=== PATIENT | male | born 1960 | race Caucasian/White ===

== ENCOUNTER 2025-07-03 09:22 | Emergency (ER) | payer MEDICAID, SELFPAY ==
[2025-07-03 09:41] VITALS: BP 148/86; PULSE 95; RESP 18; TEMP 36.5; O2SAT 97; BMI 25.7
[2025-07-03 09:42] VITALS: BMI 26.4
--- NOTE | 2025-07-03 09:42 | EDNOTE_ITS ---
ED Medical Clearance RME/HPI General Chief complaint: Medical Clearance Stated complaint: alf check Time Seen by Provider: 07/03/25 09:23 Arrival date/time: 07/03/25 09:22 RME / HPI RME / HPI Narrative: 65 year old male presents to the ED brought in by [facility] for medical clearance for incarceration today. Per officer, while in alf, patient reported he was unable to stand or walk on his own. Additionally report there are wounds to bilateral lower extremities that need further evaluation/treatment. In the ED, patient reports in he was diagnosed with ALS?. At baseline, patient reports using crutches or wheelchair to get around due to bilateral lower extremity weakness. Patient additionally complains of pain to his hips and lower back. Patient mentioned he had been previously admitted here for bilateral lower extremity cellulitis that improved with antibiotics 1 year ago. Denies fevers, chills, sweats, n/v, or other associated symptoms. Related Information Previous Rx's ?Medication ?Instructions ?Recorded amoxicillin 875 mg-potassium 1 tab PO BID #14 tabs clavulanate 125 mg tablet ascorbic acid (vitamin C) 250 mg 500 mg (2 x 250 mg) P O BID #30 tabs 04/26/24 tablet (Vitamin C) doxycycline hyclate 100 mg tablet 100 mg PO BID #14 ta bs 04/26/24 multivitamin with folic acid 400 1 tab PO QDAY #30 tab s 04/26/24 mcg tablet (Tab-A-Doc) nicotine 14 mg/24 hr daily 14 mg top QDAY #30 ea 04/26 transdermal patch zinc sulfate 50 mg zinc (220 mg) 220 mg (4.4 x 50 mg z inc (220 mg)) 04/26/24 capsule PO QDAY #30 caps Allergies Allergy/AdvReac Type Severity Reaction Status Date / Time No Known Allergies Allergy Verified 07/03/25 09:46 Review of Systems Review of Systems Systems Reviewed: All systems reviewed, normal except as documented Past Medical History Past Medical History NEUROLOGIC: Positive Neurological Disorders and Amyotrophic Lateral Sclerosis (ALS/Steff Gehrig's) CARDIAC: Positive Cardiac Disorders and Hypertension PSYCHO/SOCIAL: Positive Recreational Drug Use Family History FAMILY HISTORY: Negative Family Cardiac Disorders Surgical History SURGICAL: Negative Abdominal Surgery or Nephrectomy Social History SMOKING STATUS: Current some day smoker ED Exam Narrative Physical exam: GENERAL APPEARANCE: alert and oriented x 4, well-developed, well-nourished, no acute distress HEENT: Normocephalic, atraumatic; pupils equal, round, reactive to light; EOMI; mucous membranes pink, moist; oropharynx clear NECK: Supple LUNGS: CTABL; no wheezes, no rales, no rhonchi HEART: Regular rate, regular rhythm; normal S1, S2; no murmurs ABDOMEN: non distended; normal BS; soft, no tenderness, no guarding, no rebound; no masses, no organomegaly, no hernia BACK: no CVA tenderness EXTREMITIES: left leg weakness, chronic wound x 2 on the left lower extremities, cap refill <2 seconds, feet are warm and pink, cross over of the right second toe NEUROLOGIC: awake; alert and oriented x4; cranial nerves II-XII grossly intact; no focal sensory or motor deficits PSYCHIATRIC: appropriate mood and affect SKIN: warm, dry, normal color; no rashes Course Course Course Narrative: Patient remains clinically stable throughout the emergency department visit. We reviewed all the results, analysis, and treatment plans. Patient is amenable to discharge. Strict return precautions were outlined. Quality Measures none Orders Category Date Time Status CBC Stat Lab 07/03/25 10:15 Completed CMP [Comprehensive Metabolic Panel] Stat Lab 07/03/25 10:15 Completed ESR [Sed Rate (ESR)] Stat Lab 07/03/25 10:15 Completed Vital Signs Vital signs: Vital Signs Temperature 97.7 F 07/03/25 09:41 Pulse Rate 95 07/03/25 09:41 Respiratory Rate 18 07/03/25 09:41 Blood Pressure 148/86 H 07/03/25 09:41 Pulse Oximetry (%) 97 07/03/25 09:41 Oxygen Delivery Method Room Air 07/03/25 09:41 Pulse ox is 97% on room air which is adequate. Medical Clearance MDM Narrative MDM Narrative:: Tisha Lind am scribing for and in the presence of Dr. De La Cruz. Patient data External records reviewed:: [facility] previous records (I reviewed admission from 04/23/2024 through 04/27/2024 for bilateral lower extremity cellulitis ) Clinical information provided by:: patient and law enforcement Social determinants that could affect healthcare access:: housing (Patient is homeless ) Patient has the following chronic illnesses:: hypertension, chronic cellulitis/venous stasis, osteoarthritis, PAD, ALS? How is presenting disease/condition affected by chronic disease/condition?: exacerbated by Evaluation data The following diagnostics were reviewed and interpreted by me:: lab results Lab and/or radiology exams considered but not ordered:: None Interpretation Summary: CBC and CMP are unremarkable, no acute infection Medications / Prescriptions Medications or Prescriptions considered but not ordered:: None Medication administrations:: None Consultations Consultation(s) initiated? (list below): No Diagnosis Medical Clearance Differential Diagnosis: other (Cellulitis, PAD, ) Most likely diagnosis given after review of the tests above:: Chronic wound of extremity Left leg weakness Admission Indicated Admission indicated?: not indicated Admission Request Was there a request for admission?: No Disposition Plan Disposition Plan: Discharge Discharge Attestation Discharge Attestation: The patient and all family members were given an opportunity to ask questions and understood the discharge instructions. Discharge instructions specifically effects, indications for sooner follow up or return to the emergency department, and the expected course of current diagnosis. Patient condition: Stable Discharge Plan Plan Patient Disposition: Care Home/Court/Law Discharge Disposition comment: Okay to book Prescriptions/Referrals Prescriptions/Med Rec: No Action nicotine 14 mg/24 hr Patch 24 Hour 14 mg top QDAY Qty: 30 0RF ascorbic acid (vitamin C) [Vitamin C] 250 mg Tablet 500 mg PO BID Qty: 30 0RF doxycycline hyclate 100 mg Tablet 100 mg PO BID Qty: 14 0RF amoxicillin-pot clavulanate 875-125 mg Tablet 1 tab PO BID Qty: 14 0RF zinc sulfate 50 mg zinc (220 mg) Capsule 220 mg PO QDAY Qty: 30 0RF multivitamin with folic acid [Tab-A-Doc] 400 mcg Tablet 1 tab PO QDAY Qty: 30 0RF Referrals: No Primary/Family,Physician [Primary Care Provider] - In 1 week Problem List Clinical Impression: Chronic wound of extremity, Left leg weakness Patient/Caregiver Discharge Instructions Additional Instructions: Continue current wound care regimen Print Language: Korean
[2025-07-03 10:25] LABS: Basophils # (Auto) 0.0 Thou/mm3 (0.0-0.2); Basophils % (Auto) 1 % (0-2.5); Eosinophils # (Auto) 0.2 Thou/mm3 (0.0-0.5); Eosinophils % (Auto) 2 % (0-10); Hematocrit 41.5 % (41.0-53.0); Hemoglobin 13.6 g/dL (13.5-16.0); Immature Granulocytes Auto 0.02 Thou/mm3 (0.00-0.00); Lymphocytes # (Auto) 0.8 Thou/mm3 (1.0-4.8); Lymphocytes % (Auto) 13 % (10-50); Mean Corpuscular HGB Conc 32.8 g/dl (31.0-37.0); Mean Corpuscular Hemoglobin 28.7 pg (25.0-35.0); Mean Corpuscular Volume 88 fL (80-100); Monocytes # (Auto) 0.6 Thou/mm3 (0.0-0.8); Monocytes % (Auto) 10 % (0-12); Neutrophils # (Auto) 4.7 Thou/mm3 (1.8-7.7); Neutrophils % (Auto) 74 % (37-80); Nucleated Red Blood Cell # 0.00 Thou/mm3 (0.00-0.00); Nucleated Red Blood Cell % 0 /100 WBC (0); Platelet Count 269 Thou/mm3 (140-440); RDW Standard Deviation 46.5 fL (35.1-43.9); Red Blood Count 4.74 Miln/mm3 (4.50-5.90); White Blood Count 6.4 Thou/mm3 (3.8-10.6)
[2025-07-03 10:32] VITALS: PULSE 83; RESP 20; TEMP 36.3; O2SAT 97
[2025-07-03 10:35] VITALS: BP 163/103; PULSE 81; RESP 20; TEMP 36.3; O2SAT 97
[2025-07-03 10:43] LABS: Alanine Aminotransferase 13 U/L (10-49); Albumin, Serum 4.5 gm/dL (3.4-4.8); Albumin/Globulin Ratio 1.5 (1.2-2.2); Alkaline Phosphatase 131 U/L (46-116); Anion Gap 8 (7-16); Aspartate Amino Transferase 18 U/L (0-34); BUN/Creatinine Ratio 23 Ratio (12-20); Bilirubin,Total 0.3 mg/dL (0.3-1.2); Blood Urea Nitrogen 16 mg/dL (9-23); Calcium 10.1 mg/dL (8.3-10.6); Calcium (Corrected) 10.1 mg/dL (8.5-10.1); Carbon Dioxide 27.3 mMol/L (20.0-31.0); Chloride 107 mMol/L (98-107); Creatinine (Component) 0.7 mg/dL (0.6-1.3); Estimated Creatinine Clearance 118.6 mL/min (>60); Globulin 3.0 gm/dL (2.3-3.5); Glucose 116 mg/dL (74-106); Osmolality,Calculated 285 (275-295); Potassium 4.0 mMol/L (3.4-5.1); Sodium 142 mMol/L (136-145); Total Protein 7.5 gm/dL (5.7-8.2); eGFR > 60 See Note
[2025-07-03 10:53] LABS: Sed Rate (ESR) 43 mm/hr (0-20)
[2025-07-03 11:00] VITALS: BP 163/105; PULSE 89; RESP 19; O2SAT 98
[2025-07-03 11:30] VITALS: BP 136/104
== END 2025-07-03 11:33 ==
PROVIDERS: Emergency Provider Emergency Medicine
DX: Z02.89 Encounter for other administrative examinations (principal); R53.1 Weakness; L98.499 Non-pressure chronic ulcer of skin of other sites with unspecified severity; Z59.00 Homelessness unspecified
CPT/HCPCS: 36415; 80053; 85025; 85652; 99283

== ENCOUNTER 2025-09-11 22:46 | Emergency (ER) | payer MEDICAID, SELFPAY ==
[2025-09-11 22:52] VITALS: BMI 25.7
[2025-09-11 22:53] VITALS: BP 133/87; PULSE 98; RESP 19; TEMP 36.9; O2SAT 96
--- NOTE | 2025-09-11 23:33 | PD.EDSKIN ---
ED Skin Abcess FB-RME/HPI General Chief complaint: Extremity Injury, Lower Stated complaint: LEG PAIN AND ULCERS Time Seen by Provider: 09/11/25 23:21 Arrival date/time: 09/11/25 22:46 RME / HPI RME / HPI narrative: DR. CABRAL MAIN ED EVALUATION: 65 y/o male with Hx of ALS, HTN, and Recreational Drug use BIB [facility]PD for medical clearance presents to ED c/o worsening BLE pain x 1 month. Symptoms usually managed with Bacitracin and ambulates with crutches. Patient was released from [facility] approximately 2 weeks ago. Related Data Previous Rx's ?Medication ?Instructions ?Recorded amoxicillin 875 mg-potassium 1 tab PO BID #14 tabs 04/26/24 clavulanate 125 mg tablet ascorbic acid (vitamin C) 250 mg 500 mg (2 x 250 mg) PO BID #30 tabs 04/26/24 tablet (Vitamin C) doxycycline hyclate 100 mg tablet 100 mg PO BID #14 tabs 04/26/24 multivitamin with folic acid 400 1 tab PO QDAY #30 tabs 04/26/24 mcg tablet (Tab-A-Doc) nicotine 14 mg/24 hr daily 14 mg top QDAY #30 ea 04/26/24 transdermal patch zinc sulfate 50 mg zinc (220 mg) 220 mg (4.4 x 50 mg zinc (220 mg)) 04/26/24 capsule PO QDAY #30 caps cephalexin 500 mg capsule 500 mg PO TID 10 days #30 caps 09/12/25 sulfamethoxazole 800 1 tab PO BID #20 tabs 09/12/25 mg-trimethoprim 160 mg tablet (Bactrim DS) Allergies Allergy/AdvReac Type Severity Reaction Status Date / Time No Known Allergies Allergy Verified 07/03/25 09:46 Review of Systems Review of Systems Systems Reviewed: All systems reviewed, normal except as documented Past Medical History Past Medical History NEUROLOGIC: Positive Neurological Disorders and Amyotrophic Lateral Sclerosis (ALS/Steff Gehrig's) CARDIAC: Positive Cardiac Disorders and Hypertension PSYCHO/SOCIAL: Positive Recreational Drug Use Social History SMOKING STATUS: Current some day smoker ED Exam Narrative Physical exam: Generally patient is alert somewhat cachectic with poor hygiene, heart is regular rate and rhythm, lungs clear to auscultation, abdomen soft bowel sounds present nondistended nontender, extremities show shallow-based ulcerations to bilateral lower extremities with the 1 on the right to the inner aspect of the distal tibia and the 1 on the left to the mid franco region. Both show mild thin discharge but no fluctuance. There is mild surrounding erythema. Patient denies vomiting or fevers. Patient received Ancef 1 g IV and pharmacy dose vancomycin IV. There is no leukocytosis or fever. X-rays of bilateral tibia and fibula's showed no bony destruction. The patient does not want to be admitted and wishes to go home. I believe it is safe for the patient to be discharged home. He was brought in by law enforcement however the patient is not under arrest. He is to take the cephalexin and Bactrim as prescribed. I interpreted all labs. Course Quality Measures none Orders Category Date Time Status XR tibia fibula BI 2V Stat Exams 09/11/25 23:45 Taken BMP [Basic Metabolic Panel] Stat Lab 09/11/25 23:53 Completed CBC Stat Lab 09/11/25 23:53 Completed Vancomycin Inj 1,000 mg Med 09/11/25 23:45 Active Sodium Chloride 0.9% 250 ml [Ns] 250 ml IV X1 Vancomycin Pharmacy to Dose Med 09/12/25 09:00 Pending 1 each IV QDAY ceFAZolin/D5W 1 GM IVPB [Ancef Ivpb] Med 09/11/25 23:46 Discontinued 1 gm in 50 ml IV X1 Vital Signs Vital signs: Vital Signs Temperature 98.5 F 09/11/25 22:53 Pulse Rate 98 09/11/25 22:53 Respiratory Rate 19 09/11/25 22:53 Blood Pressure 133/87 H 09/11/25 22:53 Pulse Oximetry (%) 96 09/11/25 22:53 Oxygen Delivery Method Room Air 09/11/25 22:53 Skin / Abscess / Foreign Body MDM Narrative MDM Narrative:: Scribe Attestation: Lazara Lind, am scribing for and in the presence of Dr. Cabral. Provider Notation: Although this document has been carefully reviewed, there may still be some phonetic and other typographical errors. These errors are purely grammatical due to imperfections in the software program and should not be construed in any way to compromise the substance of the patient's medical care during this visit. Patient data External records reviewed:: [facility] previous records (Reviewed prior ED records from 07/03/25. Patient was seen for Chronic wound of extremity.) Clinical information provided by:: patient Social determinants that could affect healthcare access:: substance use Patient has the following chronic illnesses:: Amyotrophic Lateral Sclerosis, Hypertension, Recreational Drug Use How is presenting disease/condition affected by chronic disease/condition?: exacerbated by Evaluation data The following diagnostics were reviewed and interpreted by me:: lab results and radiology exam(s) Lab and/or radiology exams considered but not ordered:: None Interpretation Summary: RADIOLOGY BL Tib/Fib X-Ray: Pending official radiology report. Medications / Prescriptions Medications or Prescriptions considered but not ordered:: None Medication administrations:: Medication Administration History Vancomycin HCl 1,000 mg/ (Sodium Chloride) 250 mls @ 120 mls/hr IV X1 ONE Stop: 09/12/25 01:49 Last Admin: 09/12/25 01:04 Dose: 120 mls/hr Documented By: SHALA Pharmacy Consult (Vancomycin Pharmacy To Dose 1 Each Each) 1 each IV QDAY PAULINO Stop: 10/12/25 08:59 Discontinued Medications Cefazolin Sodium/Dextrose (Ancef Ivpb) 1 gm in 50 mls @ 100 mls/hr IV X1 ONE Stop: 09/12/25 00:15 Last Infusion: 09/12/25 00:53 Dose: Infused Documented By: Admin: 09/12/25 00:23 Dose: 100 mls/hr Documented By: SHALA See above if any Consultations Consultation(s) initiated? (list below): No Diagnosis Skin/Abscess Differential Diagnosis: abscess of skin or subcutaneous tissue, cellulitis and contact dermatitis Most likely diagnosis given after review of the tests above:: None Admission Indicated Admission indicated?: not indicated Admission Request Was there a request for admission?: No Disposition Plan Disposition Plan: Discharge Discharge Attestation Discharge Attestation: The patient and all family members were given an opportunity to ask questions and understood the discharge instructions. Discharge instructions specifically effects, indications for sooner follow up or return to the emergency department, and the expected course of current diagnosis. Patient condition: Stable Discharge Plan Plan Patient Disposition: HOME (Self Care) Prescriptions/Referrals Prescriptions/Med Rec: New cephalexin 500 mg capsule 500 mg PO TID 10 Days Qty: 30 0RF sulfamethoxazole-trimethoprim [Bactrim DS] 800-160 mg tablet 1 tab PO BID Qty: 20 0RF No Action nicotine 14 mg/24 hr Patch 24 Hour 14 mg top QDAY Qty: 30 0RF ascorbic acid (vitamin C) [Vitamin C] 250 mg Tablet 500 mg PO BID Qty: 30 0RF doxycycline hyclate 100 mg Tablet 100 mg PO BID Qty: 14 0RF amoxicillin-pot clavulanate 875-125 mg Tablet 1 tab PO BID Qty: 14 0RF zinc sulfate 50 mg zinc (220 mg) Capsule 220 mg PO QDAY Qty: 30 0RF multivitamin with folic acid [Tab-A-Doc] 400 mcg Tablet 1 tab PO QDAY Qty: 30 0RF Problem List Clinical Impression: Cellulitis Patient/Caregiver Discharge Instructions Education Materials: ED Cellulitis Additional Instructions: Take your antibiotics as prescribed. Follow-up with your doctor. Return as needed. Print Language: Welsh Stand Alone Forms: [facility] Award Info., Patient Portal Info Letter
[2025-09-11 23:34] VITALS: PULSE 90; RESP 19; O2SAT 97; BMI 23.1
--- NOTE | 2025-09-11 23:45 | XR_ITS ---
EXAMINATION: Bilateral tibia fibula is 4 views TECHNIQUE: AP lateral right and left tibia fibula is 4 views Date and time: September 11, 2025, 11:51 p.m. INDICATIONS: Redness swelling and pain involving the lower legs this week FINDINGS: Significant osteopenia. Bilateral advanced knee tricompartment osteoarthritis No fractures No cortical bone destruction No foreign bodies IMPRESSION: Negative for osteomyelitis No fractures identified
[2025-09-11 23:52] VITALS: BP 121/84; PULSE 88; RESP 25; TEMP 36.9; O2SAT 98
[2025-09-12 00:10] LABS: Basophils # (Auto) 0.0 Thou/mm3 (0.0-0.2); Basophils % (Auto) 1 % (0-2.5); Eosinophils # (Auto) 0.2 Thou/mm3 (0.0-0.5); Eosinophils % (Auto) 3 % (0-10); Hematocrit 38.7 % (41.0-53.0); Hemoglobin 12.8 g/dL (13.5-16.0); Immature Granulocytes Auto 0.02 Thou/mm3 (0.00-0.00); Lymphocytes # (Auto) 0.7 Thou/mm3 (1.0-4.8); Lymphocytes % (Auto) 13 % (10-50); Mean Corpuscular HGB Conc 33.1 g/dl (31.0-37.0); Mean Corpuscular Hemoglobin 29.1 pg (25.0-35.0); Mean Corpuscular Volume 88 fL (80-100); Monocytes # (Auto) 0.5 Thou/mm3 (0.0-0.8); Monocytes % (Auto) 9 % (0-12); Neutrophils # (Auto) 4.0 Thou/mm3 (1.8-7.7); Neutrophils % (Auto) 73 % (37-80); Nucleated Red Blood Cell # 0.00 Thou/mm3 (0.00-0.00); Nucleated Red Blood Cell % 0 /100 WBC (0); Platelet Count 305 Thou/mm3 (140-440); RDW Standard Deviation 46.4 fL (35.1-43.9); Red Blood Count 4.40 Miln/mm3 (4.50-5.90); White Blood Count 5.4 Thou/mm3 (3.8-10.6)
[2025-09-12 00:17] LABS: Anion Gap 9 (7-16); BUN/Creatinine Ratio 13 Ratio (12-20); Blood Urea Nitrogen 8 mg/dL (9-23); Calcium 8.8 mg/dL (8.3-10.6); Carbon Dioxide 26.9 mMol/L (20.0-31.0); Chloride 105 mMol/L (98-107); Creatinine (Component) 0.6 mg/dL (0.6-1.3); Estimated Creatinine Clearance 145.5 mL/min (>60); Glucose 114 mg/dL (74-106); Osmolality,Calculated 280 (275-295); Potassium 3.8 mMol/L (3.4-5.1); Sodium 141 mMol/L (136-145); eGFR > 60 See Note
[2025-09-12] MEDS: ceFAZolin/D5W 1 GM IVPB 1 GM/50 ML BAG IV (00:23)
[2025-09-12] MEDS: Vancomycin Inj 1,000 MG in SODIUM CHLORIDE 0.9% 250 ML 250 ML 120 MG IV (01:04)
--- NOTE | 2025-09-12 01:15 | PD.EDADDENDU ---
Emergency Room Addendum Addendum Narrative: Sterile dressings were applied to bilateral lower extremity ulcerations consisting of Xeroform gauze 4 x 4's and Curlex roll.
[2025-09-12 02:25] VITALS: BP 135/73; PULSE 100; RESP 25; O2SAT 96
[2025-09-12 04:35] VITALS: BP 144/97; PULSE 74; RESP 19; TEMP 36.9; O2SAT 97
== END 2025-09-12 05:26 | disposition home or self-care (01) ==
LOC: SERX 09-12 02:53
PROVIDERS: Emergency Provider Emergency Medicine; PCP Family Medicine
DX: L02.416 Cutaneous abscess of left lower limb (principal)
CPT/HCPCS: 36415; 73590; 80048; 85025; 96365; 96366; 99283; J0689; J3373; J7050